=== PATIENT | male | born 1970 | race Two or more races ===

== ENCOUNTER 2021-07-16 12:56 | Inpatient (IN) | payer OTHER ==
[2021-07-16] MEDS ORDERED: IBUPROFEN 400 MG TABLET (FP) PO PRN (14:31)
[2021-07-16] MEDS ORDERED: MAGNESIUM CITRATE 300 ML BOTTLE PO PRN (14:31)
[2021-07-16] MEDS ORDERED: MAGNESIUM HYDROX 2400MG/30ML ORAL SUSPENSION 30 ML CUP PO PRN (14:31)
[2021-07-16] MEDS ORDERED: guaiFENesin 200 MG/10 ML 10 ML UNIT-DOSE CUPS PO PRN (14:31)
[2021-07-16] MEDS ORDERED: P-EPHED 60MG/TRIPROLIDI 2.5MG TABLET PO PRN (14:31)
[2021-07-16] MEDS ORDERED: MAG HYDROX/AL HYDROX/SIMETH 30 ML UNIT-DOSE CUP PO PRN (14:31)
[2021-07-16] MEDS ORDERED: NICOTINE 10 MG CARTRIDGE (INHALER) IH PRN (14:31)
[2021-07-16] MEDS ORDERED: LOPERAMIDE HCL 2 MG CAPSULE PO PRN (14:31)
[2021-07-16 15:00] VITALS: BMI 25.7
[2021-07-16 17:08] LABS: ALBUMIN 4.1 g/dl (3.4-5.0); CALCIUM 9.4 mg/dL (8.5-10.1)
[2021-07-16 17:09] LABS: BLOOD UREA NITROGEN 17.1 mg/dL (7-18)
[2021-07-16 17:11] LABS: CREATININE 1.1 mg/dL (0.55-1.3)
[2021-07-16 17:13] LABS: BILIRUBIN,TOTAL 0.3 mg/dL (0.2-1); TOT PROT 7.1 g/dl (6.4-8.2)
[2021-07-16 17:20] LABS: HEMATOCRIT 36.1 % (35.4-49); HEMOGLOBIN 12.6 GM/dL (11.7-16.9); MCH 31.2 pg (25.7-33.7); MCHC 34.9 g/dl (32.0-35.9); MEAN CELL VOLUME 89.6 fl (80-96); MEAN PLT VOLUME 8.1 fl (7.5-11.1); PLATELET COUNT 321 10^3/uL (134-434); RBC 4.03 M/mm3 (4.00-5.60); RDW 14.5 % (11.9-15.9); WHITE BLOOD COUNT 7.1 K/mm3 (4.0-10.0)
[2021-07-16 17:37] LABS: SYPHILIS W/ RPR CONF NON-REACTIVE (NONREACTIVE)
[2021-07-16] MEDS: hydrOXYzine PAMOATE 25 MG CAPSULE (FP) PO SCH ×2 (19:24→23:39)
[2021-07-16] MEDS ORDERED: TUBERCULIN PPD 5 TU/0.1ML VIAL ID ONE (19:25)
[2021-07-16] MEDS: MELATONIN 5 MG TABLETS PO SCH (23:38)
[2021-07-16] MEDS: CEPHALEXIN MONOHYDRATE 500 MG CAPSULE (UD) PO SCH (23:38)
[2021-07-16] MEDS: THIAMINE HCL 100 MG TABLET (FP) PO SCH (23:39)
[2021-07-17] MEDS: hydrOXYzine PAMOATE 25 MG CAPSULE (FP) PO SCH (07:19)
[2021-07-17] MEDS: PRENATAL VITAMINS W/ FOLIC ACID TABLET (FP) PO SCH (11:32)
[2021-07-17] MEDS: CEPHALEXIN MONOHYDRATE 500 MG CAPSULE (UD) PO SCH (11:33)
[2021-07-17] MEDS: NICOTINE 7 MG/24 HOURS TOPICAL PATCH TD SCH (11:33)
[2021-07-17 12:06] LABS: HIV INTERPRETATION NEGATIVE (NEGATIVE)
[2021-07-17 13:32] LABS: URINE APPEARANCE CLEAR; URINE BILIRUBIN NEGATIVE (NEGATIVE); URINE COLOR YELLOW; URINE GLUCOSE (UA) NEGATIVE (NEGATIVE); URINE KETONE NEGATIVE (NEGATIVE); URINE LEUK ESTERASE NEGATIVE (NEGATIVE); URINE NITRITE NEGATIVE (NEGATIVE); URINE PROTEIN NEGATIVE (NEGATIVE); URINE UROBILINOGEN 0.2 mg/dL (0.2-1.0)
[2021-07-17] MEDS: GABAPENTIN 300 MG CAPSULE PO SCH ×2 (13:59→22:08)
[2021-07-17] MEDS: MELATONIN 5 MG TABLETS PO SCH (22:08)
[2021-07-17] MEDS: THIAMINE HCL 100 MG TABLET (FP) PO SCH (22:09)
[2021-07-18] MEDS: GABAPENTIN 300 MG CAPSULE PO SCH ×3 (06:00→21:23)
[2021-07-18] MEDS: NICOTINE 7 MG/24 HOURS TOPICAL PATCH TD SCH ×2 (10:34)
[2021-07-18] MEDS: PRENATAL VITAMINS W/ FOLIC ACID TABLET (FP) PO SCH (10:34)
[2021-07-18 13:07] LABS: SARS-CoV-2 NAA Not Detected (Not Detected)
[2021-07-18] MEDS: THIAMINE HCL 100 MG TABLET (FP) PO SCH (21:22)
[2021-07-18] MEDS: MELATONIN 5 MG TABLETS PO SCH (21:22)
[2021-07-19] MEDS: GABAPENTIN 300 MG CAPSULE PO SCH ×3 (06:21→21:06)
[2021-07-19] MEDS: NICOTINE 7 MG/24 HOURS TOPICAL PATCH TD SCH (09:44)
[2021-07-19] MEDS: PRENATAL VITAMINS W/ FOLIC ACID TABLET (FP) PO SCH (09:44)
[2021-07-19] MEDS: MELATONIN 5 MG TABLETS PO SCH (21:06)
[2021-07-19] MEDS: THIAMINE HCL 100 MG TABLET (FP) PO SCH (21:06)
[2021-07-20] MEDS: GABAPENTIN 300 MG CAPSULE PO SCH ×3 (06:08→21:20)
[2021-07-20] MEDS: PRENATAL VITAMINS W/ FOLIC ACID TABLET (FP) PO SCH (10:06)
[2021-07-20] MEDS: NICOTINE 7 MG/24 HOURS TOPICAL PATCH TD SCH (10:06)
[2021-07-20] MEDS: THIAMINE HCL 100 MG TABLET (FP) PO SCH (21:20)
[2021-07-20] MEDS: MELATONIN 5 MG TABLETS PO SCH (21:20)
[2021-07-21] MEDS: GABAPENTIN 300 MG CAPSULE PO SCH ×3 (06:03→21:12)
[2021-07-21] MEDS: PRENATAL VITAMINS W/ FOLIC ACID TABLET (FP) PO SCH (09:49)
[2021-07-21] MEDS: NICOTINE 7 MG/24 HOURS TOPICAL PATCH TD SCH (09:49)
[2021-07-21] MEDS: ACETAMINOPHEN 325 MG TABLET (FP) PO PRN ×2 (09:50→16:43)
[2021-07-21] MEDS: LIDOCAINE 5% TOPICAL PATCH TP SCH (12:27)
[2021-07-21] MEDS: THIAMINE HCL 100 MG TABLET (FP) PO SCH (21:12)
[2021-07-21] MEDS: MELATONIN 5 MG TABLETS PO SCH (21:12)
[2021-07-21] MEDS: LIDOCAINE PATCH REMOVAL MC SCH (21:12)
[2021-07-22] MEDS: GABAPENTIN 300 MG CAPSULE PO SCH ×3 (06:26→21:17)
[2021-07-22] MEDS: PRENATAL VITAMINS W/ FOLIC ACID TABLET (FP) PO SCH (10:19)
[2021-07-22] MEDS: LIDOCAINE 5% TOPICAL PATCH TP SCH (10:19)
[2021-07-22] MEDS: NICOTINE 7 MG/24 HOURS TOPICAL PATCH TD SCH (10:20)
[2021-07-22] MEDS: METHOCARBAMOL 500 MG TABLET PO PRN ×2 (10:22→21:17)
[2021-07-22] MEDS: hydrOXYzine PAMOATE 25 MG CAPSULE (FP) PO PRN (15:37)
[2021-07-22] MEDS: MELATONIN 5 MG TABLETS PO SCH (21:17)
[2021-07-22] MEDS: METHYL SALICYLATE/MENTHOL OINT 30 GM TUBE TP SCH (21:17)
[2021-07-22] MEDS: THIAMINE HCL 100 MG TABLET (FP) PO SCH (21:17)
[2021-07-22] MEDS: LIDOCAINE PATCH REMOVAL MC SCH (21:18)
[2021-07-23] MEDS: GABAPENTIN 300 MG CAPSULE PO SCH ×3 (05:57→21:11)
[2021-07-23] MEDS: NICOTINE 7 MG/24 HOURS TOPICAL PATCH TD SCH (11:02)
[2021-07-23] MEDS: LIDOCAINE 5% TOPICAL PATCH TP SCH (11:02)
[2021-07-23] MEDS: hydrOXYzine PAMOATE 25 MG CAPSULE (FP) PO PRN (11:05)
[2021-07-23] MEDS: PRENATAL VITAMINS W/ FOLIC ACID TABLET (FP) PO SCH (11:05)
[2021-07-23] MEDS: METHOCARBAMOL 500 MG TABLET PO PRN (16:41)
[2021-07-23] MEDS: THIAMINE HCL 100 MG TABLET (FP) PO SCH (21:11)
[2021-07-23] MEDS: MELATONIN 5 MG TABLETS PO SCH (21:11)
[2021-07-23] MEDS: METHYL SALICYLATE/MENTHOL OINT 30 GM TUBE TP SCH (21:12)
[2021-07-23] MEDS: LIDOCAINE PATCH REMOVAL MC SCH (21:12)
[2021-07-24] MEDS: GABAPENTIN 300 MG CAPSULE PO SCH ×3 (06:07→21:52)
[2021-07-24] MEDS: LIDOCAINE 5% TOPICAL PATCH TP SCH (10:16)
[2021-07-24] MEDS: PRENATAL VITAMINS W/ FOLIC ACID TABLET (FP) PO SCH (10:17)
[2021-07-24] MEDS: METHOCARBAMOL 500 MG TABLET PO PRN ×3 (10:19→21:54)
[2021-07-24] MEDS: NICOTINE 7 MG/24 HOURS TOPICAL PATCH TD SCH (11:11)
[2021-07-24] MEDS: hydrOXYzine PAMOATE 25 MG CAPSULE (FP) PO PRN (21:52)
[2021-07-24] MEDS: MELATONIN 5 MG TABLETS PO SCH (21:52)
[2021-07-24] MEDS: THIAMINE HCL 100 MG TABLET (FP) PO SCH (21:52)
[2021-07-24] MEDS: LIDOCAINE PATCH REMOVAL MC SCH (21:53)
[2021-07-24] MEDS: METHYL SALICYLATE/MENTHOL OINT 30 GM TUBE TP SCH (21:53)
[2021-07-25] MEDS: GABAPENTIN 300 MG CAPSULE PO SCH ×3 (06:12→21:12)
[2021-07-25] MEDS: LIDOCAINE 5% TOPICAL PATCH TP SCH (10:11)
[2021-07-25] MEDS: NICOTINE 7 MG/24 HOURS TOPICAL PATCH TD SCH (10:11)
[2021-07-25] MEDS: PRENATAL VITAMINS W/ FOLIC ACID TABLET (FP) PO SCH (10:11)
[2021-07-25] MEDS: hydrOXYzine PAMOATE 25 MG CAPSULE (FP) PO PRN (10:12)
[2021-07-25] MEDS: METHOCARBAMOL 500 MG TABLET PO PRN ×2 (13:25→21:13)
[2021-07-25] MEDS: MELATONIN 5 MG TABLETS PO SCH (21:12)
[2021-07-25] MEDS: THIAMINE HCL 100 MG TABLET (FP) PO SCH (21:12)
[2021-07-25] MEDS: METHYL SALICYLATE/MENTHOL OINT 30 GM TUBE TP SCH (21:13)
[2021-07-25] MEDS: LIDOCAINE PATCH REMOVAL MC SCH (21:13)
[2021-07-26] MEDS: GABAPENTIN 300 MG CAPSULE PO SCH ×3 (06:04→21:21)
[2021-07-26] MEDS: LIDOCAINE 5% TOPICAL PATCH TP SCH (09:59)
[2021-07-26] MEDS: NICOTINE 7 MG/24 HOURS TOPICAL PATCH TD SCH (09:59)
[2021-07-26] MEDS: PRENATAL VITAMINS W/ FOLIC ACID TABLET (FP) PO SCH (09:59)
[2021-07-26] MEDS: METHOCARBAMOL 500 MG TABLET PO PRN ×2 (09:59→21:21)
[2021-07-26] MEDS: THIAMINE HCL 100 MG TABLET (FP) PO SCH (21:21)
[2021-07-26] MEDS: hydrOXYzine PAMOATE 25 MG CAPSULE (FP) PO PRN (21:21)
[2021-07-26] MEDS: MELATONIN 5 MG TABLETS PO SCH (21:21)
[2021-07-26] MEDS: METHYL SALICYLATE/MENTHOL OINT 30 GM TUBE TP SCH (21:22)
[2021-07-26] MEDS: LIDOCAINE PATCH REMOVAL MC SCH (21:22)
[2021-07-27] MEDS: GABAPENTIN 300 MG CAPSULE PO SCH (06:02)
[2021-07-27] MEDS: hydrOXYzine PAMOATE 25 MG CAPSULE (FP) PO PRN (06:12)
[2021-07-27] MEDS: METHOCARBAMOL 500 MG TABLET PO PRN ×2 (06:12→09:18)
[2021-07-27 07:12] VITALS: BP 129/84; PULSE 68; TEMP 97.3
[2021-07-27] MEDS: PRENATAL VITAMINS W/ FOLIC ACID TABLET (FP) PO SCH (09:17)
[2021-07-27] MEDS: LIDOCAINE 5% TOPICAL PATCH TP SCH (09:59)
[2021-07-27] MEDS: NICOTINE 7 MG/24 HOURS TOPICAL PATCH TD SCH (10:00)
== END 2021-07-27 09:36 | disposition home or self-care (01) | DRG 772 ==
LOC: YASAS 12:56 → Y3W 18:06
PROVIDERS: ADMIT Allergy & Immunology; ATTEND Allergy & Immunology
PROC: HZ42ZZZ Group Counseling for Substance Abuse Treatment, Cognitive-Behavioral (ICD-10-PCS; principal; 2021-07-16)
DX: F10.20 Alcohol dependence, uncomplicated (principal); F14.20 Cocaine dependence, uncomplicated; F12.20 Cannabis dependence, uncomplicated; F19.280 Other psychoactive substance dependence with psychoactive substance-induced anxiety disorder; F19.282 Other psychoactive substance dependence with psychoactive substance-induced sleep disorder; F31.9 Bipolar disorder, unspecified; F41.9 Anxiety disorder, unspecified; E11.9 Type 2 diabetes mellitus without complications; M54.89 Other dorsalgia; G89.29 Other chronic pain; Z56.0 Unemployment, unspecified; Z59.01 Sheltered homelessness
CPT/HCPCS: 36415; 80053; 81003; 82962; 85027; 86780; 86803; 87389; 93005; 93010; C9803-CS; U0003; U0005

== ENCOUNTER 2022-03-08 16:41 | Inpatient (IN) | payer OTHER ==
[2022-03-08 19:31] VITALS: BMI 23.3
[2022-03-08] MEDS ORDERED: LOPERAMIDE HCL 2 MG CAPSULE PO PRN (19:49)
[2022-03-08] MEDS ORDERED: MAGNESIUM CITRATE 300 ML BOTTLE PO PRN (19:49)
[2022-03-08] MEDS ORDERED: NICOTINE POLACRILEX 2 MG GUM BC PRN (19:49)
[2022-03-08] MEDS ORDERED: guaiFENesin 200 MG/10 ML 10 ML UNIT-DOSE CUPS PO PRN (19:49)
[2022-03-08] MEDS ORDERED: P-EPHED 60MG/TRIPROLIDI 2.5MG TABLET PO PRN (19:49)
[2022-03-08] MEDS ORDERED: NICOTINE 10 MG CARTRIDGE (INHALER) IH PRN (19:49)
[2022-03-08] MEDS ORDERED: MAG HYDROX/AL HYDROX/SIMETH 30 ML UNIT-DOSE CUP PO PRN (19:49)
[2022-03-08] MEDS ORDERED: IBUPROFEN 400 MG TABLET (FP) PO PRN (19:49)
[2022-03-08] MEDS ORDERED: hydrOXYzine PAMOATE 25 MG CAPSULE (FP) PO PRN (19:49)
[2022-03-08] MEDS ORDERED: MAGNESIUM HYDROX 2400MG/30ML ORAL SUSPENSION 30 ML CUP PO PRN (19:49)
[2022-03-08] MEDS: THIAMINE HCL 100 MG TABLET (FP) PO SCH (22:35)
[2022-03-09] MEDS: PRENATAL VITAMINS W/ FOLIC ACID TABLET (FP) PO SCH (10:08)
[2022-03-09] MEDS: GABAPENTIN 100 MG CAPSULE PO SCH (12:31)
[2022-03-09 13:00] LABS: HEMATOCRIT 39.3 % (35.4-49); HEMOGLOBIN 13.2 GM/dL (11.7-16.9); MCH 30.9 pg (25.7-33.7); MCHC 33.5 g/dl (32.0-35.9); MEAN CELL VOLUME 92.5 fl (80-96); MEAN PLT VOLUME 8.4 fl (7.5-11.1); PLATELET COUNT 314 10^3/uL (134-434); RBC 4.25 M/mm3 (4.00-5.60); RDW 14.6 % (11.9-15.9); WHITE BLOOD COUNT 6.5 K/mm3 (4.0-10.0)
[2022-03-09 13:04] LABS: ALBUMIN 3.8 g/dl (3.4-5.0); BLOOD UREA NITROGEN 11.3 mg/dL (7-18)
[2022-03-09 13:07] LABS: CREATININE 0.9 mg/dL (0.55-1.3)
[2022-03-09 13:09] LABS: BILIRUBIN,TOTAL 0.2 mg/dL (0.2-1); TOT PROT 6.6 g/dl (6.4-8.2)
[2022-03-09 16:16] LABS: URINE APPEARANCE CLEAR; URINE BILIRUBIN NEGATIVE (NEGATIVE); URINE COLOR YELLOW; URINE GLUCOSE (UA) NEGATIVE (NEGATIVE); URINE KETONE NEGATIVE (NEGATIVE); URINE LEUK ESTERASE NEGATIVE (NEGATIVE); URINE NITRITE NEGATIVE (NEGATIVE); URINE PROTEIN NEGATIVE (NEGATIVE); URINE UROBILINOGEN 0.2 mg/dL (0.2-1.0)
[2022-03-09] MEDS: GABAPENTIN 300 MG CAPSULE PO SCH (21:58)
[2022-03-09] MEDS: THIAMINE HCL 100 MG TABLET (FP) PO SCH (21:58)
[2022-03-09] MEDS: BENZTROPINE MESYLATE 1 MG TABLET PO SCH (21:58)
[2022-03-09] MEDS: OLANZapine 10 MG TABLET PO SCH (21:58)
[2022-03-10] MEDS: PRENATAL VITAMINS W/ FOLIC ACID TABLET (FP) PO SCH (09:53)
[2022-03-10] MEDS: GABAPENTIN 100 MG CAPSULE PO SCH (09:54)
[2022-03-10] MEDS: BENZTROPINE MESYLATE 1 MG TABLET PO SCH ×2 (09:54→21:06)
[2022-03-10] MEDS: hydrOXYzine PAMOATE 25 MG CAPSULE (FP) PO PRN ×2 (14:12→21:05)
[2022-03-10] MEDS: THIAMINE HCL 100 MG TABLET (FP) PO SCH (21:04)
[2022-03-10] MEDS: MELATONIN 5 MG TABLETS PO PRN (21:04)
[2022-03-10] MEDS: GABAPENTIN 300 MG CAPSULE PO SCH (21:05)
[2022-03-10] MEDS: OLANZapine 10 MG TABLET PO SCH (21:07)
[2022-03-11] MEDS: BENZTROPINE MESYLATE 1 MG TABLET PO SCH ×2 (09:38→21:24)
[2022-03-11] MEDS: GABAPENTIN 300 MG CAPSULE PO SCH ×2 (09:39→21:23)
[2022-03-11] MEDS: PRENATAL VITAMINS W/ FOLIC ACID TABLET (FP) PO SCH (09:39)
[2022-03-11] MEDS: ACETAMINOPHEN 325 MG TABLET (FP) PO PRN (11:04)
[2022-03-11] MEDS: hydrOXYzine PAMOATE 25 MG CAPSULE (FP) PO PRN (14:46)
[2022-03-11] MEDS: MELATONIN 5 MG TABLETS PO PRN (21:22)
[2022-03-11] MEDS: THIAMINE HCL 100 MG TABLET (FP) PO SCH (21:22)
[2022-03-11] MEDS: OLANZapine 10 MG TABLET PO SCH (21:23)
[2022-03-12] MEDS: PRENATAL VITAMINS W/ FOLIC ACID TABLET (FP) PO SCH (10:07)
[2022-03-12] MEDS: BENZTROPINE MESYLATE 1 MG TABLET PO SCH ×2 (10:07→21:19)
[2022-03-12] MEDS: GABAPENTIN 300 MG CAPSULE PO SCH ×2 (10:07→21:20)
[2022-03-12] MEDS: hydrOXYzine PAMOATE 25 MG CAPSULE (FP) PO PRN (16:54)
[2022-03-12] MEDS: MELATONIN 5 MG TABLETS PO PRN (21:19)
[2022-03-12] MEDS: OLANZapine 10 MG TABLET PO SCH (21:20)
[2022-03-12] MEDS: THIAMINE HCL 100 MG TABLET (FP) PO SCH (21:20)
[2022-03-13] MEDS: PRENATAL VITAMINS W/ FOLIC ACID TABLET (FP) PO SCH (10:03)
[2022-03-13] MEDS: GABAPENTIN 300 MG CAPSULE PO SCH ×2 (10:03→21:15)
[2022-03-13] MEDS: BENZTROPINE MESYLATE 1 MG TABLET PO SCH ×2 (10:03→21:16)
[2022-03-13] MEDS: hydrOXYzine PAMOATE 25 MG CAPSULE (FP) PO PRN ×2 (10:04→21:15)
[2022-03-13] MEDS: MELATONIN 5 MG TABLETS PO PRN (21:15)
[2022-03-13] MEDS: THIAMINE HCL 100 MG TABLET (FP) PO SCH (21:15)
[2022-03-13] MEDS: OLANZapine 10 MG TABLET PO SCH (21:16)
[2022-03-14] MEDS: hydrOXYzine PAMOATE 25 MG CAPSULE (FP) PO PRN ×2 (07:36→13:43)
[2022-03-14] MEDS: GABAPENTIN 300 MG CAPSULE PO SCH ×2 (10:10→21:15)
[2022-03-14] MEDS: PRENATAL VITAMINS W/ FOLIC ACID TABLET (FP) PO SCH (10:10)
[2022-03-14] MEDS: BENZTROPINE MESYLATE 1 MG TABLET PO SCH ×2 (10:10→21:15)
[2022-03-14] MEDS: THIAMINE HCL 100 MG TABLET (FP) PO SCH (21:14)
[2022-03-14] MEDS: OLANZapine 10 MG TABLET PO SCH (21:15)
[2022-03-14] MEDS: MELATONIN 5 MG TABLETS PO PRN (21:15)
[2022-03-15] MEDS: hydrOXYzine PAMOATE 25 MG CAPSULE (FP) PO PRN ×2 (06:25→21:26)
[2022-03-15] MEDS: BENZTROPINE MESYLATE 1 MG TABLET PO SCH ×2 (09:45→21:26)
[2022-03-15] MEDS: PRENATAL VITAMINS W/ FOLIC ACID TABLET (FP) PO SCH (09:45)
[2022-03-15] MEDS: GABAPENTIN 300 MG CAPSULE PO SCH ×2 (09:45→21:25)
[2022-03-15] MEDS: ACETAMINOPHEN 325 MG TABLET (FP) PO PRN (13:05)
[2022-03-15] MEDS: OLANZapine 10 MG TABLET PO SCH (21:25)
[2022-03-15] MEDS: THIAMINE HCL 100 MG TABLET (FP) PO SCH (21:25)
[2022-03-15] MEDS: MELATONIN 5 MG TABLETS PO PRN (21:25)
[2022-03-16] MEDS: PRENATAL VITAMINS W/ FOLIC ACID TABLET (FP) PO SCH (10:10)
[2022-03-16] MEDS: BENZTROPINE MESYLATE 1 MG TABLET PO SCH ×2 (10:10→21:13)
[2022-03-16] MEDS: GABAPENTIN 300 MG CAPSULE PO SCH ×2 (10:10→21:12)
[2022-03-16] MEDS: hydrOXYzine PAMOATE 25 MG CAPSULE (FP) PO PRN ×2 (15:02→21:12)
[2022-03-16] MEDS: OLANZapine 10 MG TABLET PO SCH (21:12)
[2022-03-16] MEDS: THIAMINE HCL 100 MG TABLET (FP) PO SCH (21:12)
[2022-03-16] MEDS: MELATONIN 5 MG TABLETS PO PRN (21:12)
[2022-03-17] MEDS: BENZTROPINE MESYLATE 1 MG TABLET PO SCH ×2 (09:04→21:17)
[2022-03-17] MEDS: GABAPENTIN 300 MG CAPSULE PO SCH ×2 (09:05→21:16)
[2022-03-17] MEDS: PRENATAL VITAMINS W/ FOLIC ACID TABLET (FP) PO SCH (09:05)
[2022-03-17] MEDS: hydrOXYzine PAMOATE 25 MG CAPSULE (FP) PO PRN (21:16)
[2022-03-17] MEDS: MELATONIN 5 MG TABLETS PO PRN (21:16)
[2022-03-17] MEDS: THIAMINE HCL 100 MG TABLET (FP) PO SCH (21:16)
[2022-03-17] MEDS: OLANZapine 10 MG TABLET PO SCH (21:16)
[2022-03-18] MEDS: BENZTROPINE MESYLATE 1 MG TABLET PO SCH ×2 (09:43→21:21)
[2022-03-18] MEDS: PRENATAL VITAMINS W/ FOLIC ACID TABLET (FP) PO SCH (09:44)
[2022-03-18] MEDS: GABAPENTIN 300 MG CAPSULE PO SCH (09:44)
[2022-03-18] MEDS: MELATONIN 5 MG TABLETS PO PRN (21:19)
[2022-03-18] MEDS: THIAMINE HCL 100 MG TABLET (FP) PO SCH (21:19)
[2022-03-18] MEDS: GABAPENTIN 400 MG CAPSULE PO SCH (21:21)
[2022-03-18] MEDS: OLANZapine 10 MG TABLET PO SCH (21:21)
[2022-03-19] MEDS: GABAPENTIN 400 MG CAPSULE PO SCH ×2 (10:04→21:16)
[2022-03-19] MEDS: BENZTROPINE MESYLATE 1 MG TABLET PO SCH ×2 (10:04→21:18)
[2022-03-19] MEDS: PRENATAL VITAMINS W/ FOLIC ACID TABLET (FP) PO SCH (10:04)
[2022-03-19] MEDS ORDERED: cloNIDine HCL 0.1 MG TABLET PO ONE (15:23)
[2022-03-19] MEDS: OLANZapine 10 MG TABLET PO SCH (21:16)
[2022-03-19] MEDS: THIAMINE HCL 100 MG TABLET (FP) PO SCH (21:16)
[2022-03-19] MEDS: hydrOXYzine PAMOATE 25 MG CAPSULE (FP) PO PRN (21:17)
[2022-03-19] MEDS: MELATONIN 5 MG TABLETS PO PRN (21:17)
[2022-03-20] MEDS: BENZTROPINE MESYLATE 1 MG TABLET PO SCH ×2 (10:14→21:17)
[2022-03-20] MEDS: GABAPENTIN 400 MG CAPSULE PO SCH ×2 (10:15→21:16)
[2022-03-20] MEDS: PRENATAL VITAMINS W/ FOLIC ACID TABLET (FP) PO SCH (10:15)
[2022-03-20] MEDS: hydrOXYzine PAMOATE 25 MG CAPSULE (FP) PO PRN (14:57)
[2022-03-20] MEDS: MELATONIN 5 MG TABLETS PO PRN (21:16)
[2022-03-20] MEDS: OLANZapine 10 MG TABLET PO SCH (21:16)
[2022-03-20] MEDS: THIAMINE HCL 100 MG TABLET (FP) PO SCH (21:16)
[2022-03-21] MEDS: BENZTROPINE MESYLATE 1 MG TABLET PO SCH ×2 (09:13→21:10)
[2022-03-21] MEDS: PRENATAL VITAMINS W/ FOLIC ACID TABLET (FP) PO SCH (09:13)
[2022-03-21] MEDS: GABAPENTIN 400 MG CAPSULE PO SCH ×2 (09:13→21:10)
[2022-03-21] MEDS: hydrOXYzine PAMOATE 25 MG CAPSULE (FP) PO PRN ×2 (15:32→21:09)
[2022-03-21] MEDS: THIAMINE HCL 100 MG TABLET (FP) PO SCH (21:09)
[2022-03-21] MEDS: MELATONIN 5 MG TABLETS PO PRN (21:09)
[2022-03-21] MEDS: OLANZapine 10 MG TABLET PO SCH (21:10)
[2022-03-22 06:45] VITALS: BP 133/72; PULSE 95; RESP 20; TEMP 97.7
[2022-03-22] MEDS: GABAPENTIN 400 MG CAPSULE PO SCH (09:02)
[2022-03-22] MEDS: PRENATAL VITAMINS W/ FOLIC ACID TABLET (FP) PO SCH (09:03)
== END 2022-03-22 09:08 | disposition home or self-care (01) | DRG 772 ==
LOC: YASAS 16:41 → Y3E 21:45
PROVIDERS: ADMIT Allergy & Immunology; ATTEND Surgery
PROC: HZ42ZZZ Group Counseling for Substance Abuse Treatment, Cognitive-Behavioral (ICD-10-PCS; principal; 2022-03-08)
DX: F10.20 Alcohol dependence, uncomplicated (principal); F14.20 Cocaine dependence, uncomplicated; F12.20 Cannabis dependence, uncomplicated; F17.210 Nicotine dependence, cigarettes, uncomplicated; F20.9 Schizophrenia, unspecified; F19.282 Other psychoactive substance dependence with psychoactive substance-induced sleep disorder; F19.280 Other psychoactive substance dependence with psychoactive substance-induced anxiety disorder; F19.24 Other psychoactive substance dependence with psychoactive substance-induced mood disorder; Z86.39 Personal history of other endocrine, nutritional and metabolic disease
CPT/HCPCS: 36415; 80053; 81003; 82962; 85027; 86780; 87086; C9803-CS; U0003; U0005

== ENCOUNTER 2022-08-10 13:47 | Inpatient (IN) | payer OTHER ==
[2022-08-10 14:55] VITALS: BMI 24.3
[2022-08-10] MEDS ORDERED: MAG HYDROX/AL HYDROX/SIMETH 30 ML UNIT-DOSE CUP PO PRN (15:01)
[2022-08-10] MEDS ORDERED: NICOTINE 10 MG CARTRIDGE (INHALER) IH PRN (15:01)
[2022-08-10] MEDS ORDERED: LOPERAMIDE HCL 2 MG CAPSULE PO PRN (15:01)
[2022-08-10] MEDS ORDERED: BENZONATATE 200 MG CAPSULE PO PRN (15:01)
[2022-08-10] MEDS ORDERED: NICOTINE POLACRILEX 2 MG GUM BC PRN (15:01)
[2022-08-10] MEDS ORDERED: MAGNESIUM HYDROX 2400MG/30ML ORAL SUSPENSION 30 ML CUP PO PRN (15:01)
[2022-08-10] MEDS ORDERED: POLYETHYLENE GLYCOL (HEALTHYLAX) 3350 17 GM PACKET PO PRN (15:01)
[2022-08-10] MEDS ORDERED: IBUPROFEN 600 MG TABLET (FP) PO PRN (15:01)
[2022-08-10] MEDS ORDERED: ACETAMINOPHEN 325 MG TABLET (FP) PO PRN (15:01)
[2022-08-10] MEDS ORDERED: IBUPROFEN 400 MG TABLET (FP) PO PRN (15:01)
[2022-08-10] MEDS ORDERED: BENZOCAINE/MENTHOL (CHLORASEPTIC ) LOZENGE MM PRN (15:01)
[2022-08-10] MEDS ORDERED: guaiFENesin 600 MG TABLET.ER (FP) PO PRN (15:01)
[2022-08-10] MEDS ORDERED: NICOTINE 14 MG/24 HOURS TOPICAL PATCH TD PRN (15:01)
[2022-08-10] MEDS: MELATONIN 5 MG TABLETS PO SCH (21:49)
[2022-08-10] MEDS: THIAMINE HCL 100 MG TABLET (FP) PO SCH (21:49)
[2022-08-11 07:04] VITALS: RESP 18
[2022-08-11] MEDS: PRENATAL VITAMINS W/ FOLIC ACID TABLET (FP) PO SCH (09:36)
[2022-08-11 11:11] LABS: URINE APPEARANCE CLEAR; URINE BILIRUBIN NEGATIVE (NEGATIVE); URINE COLOR YELLOW; URINE GLUCOSE (UA) NEGATIVE (NEGATIVE); URINE KETONE NEGATIVE (NEGATIVE); URINE LEUK ESTERASE NEGATIVE (NEGATIVE); URINE NITRITE NEGATIVE (NEGATIVE); URINE PROTEIN NEGATIVE (NEGATIVE); URINE UROBILINOGEN 0.2 mg/dL (0.2-1.0)
[2022-08-11 11:15] LABS: HEMATOCRIT 38.7 % (35.4-49); MCH 29.5 pg (25.7-33.7); MCHC 33.6 g/dl (32.0-35.9); MEAN CELL VOLUME 87.8 fl (80-96); MEAN PLT VOLUME 8.2 fl (7.5-11.1); PLATELET COUNT 381 10^3/uL (134-434); RBC 4.41 M/mm3 (4.00-5.60); RDW 15.3 % (11.9-15.9); WHITE BLOOD COUNT 6.6 K/mm3 (4.0-10.0)
[2022-08-11 11:22] LABS: ALBUMIN 3.6 g/dl (3.4-5.0)
[2022-08-11 11:23] LABS: BLOOD UREA NITROGEN 12.8 mg/dL (7-18)
[2022-08-11 11:26] LABS: CREATININE 0.8 mg/dL (0.55-1.3)
[2022-08-11 11:28] LABS: BILIRUBIN,TOTAL 0.2 mg/dL (0.2-1); TOT PROT 6.6 g/dl (6.4-8.2)
[2022-08-11 11:54] LABS: SYPHILIS W/ RPR CONF NON-REACTIVE (NONREACTIVE)
[2022-08-11] MEDS: hydrOXYzine PAMOATE 25 MG CAPSULE (FP) PO PRN (16:20)
[2022-08-11] MEDS: MELATONIN 5 MG TABLETS PO SCH (21:20)
[2022-08-11] MEDS: THIAMINE HCL 100 MG TABLET (FP) PO SCH (21:20)
[2022-08-11] MEDS: OLANZapine 5 MG TABLET PO SCH (21:22)
[2022-08-12] MEDS: OLANZapine 5 MG TABLET PO SCH ×2 (09:51→21:02)
[2022-08-12] MEDS: PRENATAL VITAMINS W/ FOLIC ACID TABLET (FP) PO SCH (09:51)
[2022-08-12] MEDS: hydrOXYzine PAMOATE 25 MG CAPSULE (FP) PO PRN (17:48)
[2022-08-12] MEDS: MELATONIN 5 MG TABLETS PO SCH (21:02)
[2022-08-12] MEDS: THIAMINE HCL 100 MG TABLET (FP) PO SCH (21:02)
[2022-08-13] MEDS: OLANZapine 5 MG TABLET PO SCH ×2 (09:50→21:27)
[2022-08-13] MEDS: PRENATAL VITAMINS W/ FOLIC ACID TABLET (FP) PO SCH (09:50)
[2022-08-13] MEDS: hydrOXYzine PAMOATE 25 MG CAPSULE (FP) PO PRN (18:52)
[2022-08-13] MEDS: THIAMINE HCL 100 MG TABLET (FP) PO SCH (21:27)
[2022-08-13] MEDS: MELATONIN 5 MG TABLETS PO SCH (21:27)
[2022-08-14 07:29] VITALS: BP 122/89; PULSE 95; TEMP 96.9
[2022-08-14] MEDS: PRENATAL VITAMINS W/ FOLIC ACID TABLET (FP) PO SCH (10:25)
[2022-08-14] MEDS: OLANZapine 5 MG TABLET PO SCH (10:25)
[2022-08-14] MEDS: hydrOXYzine PAMOATE 25 MG CAPSULE (FP) PO PRN (10:26)
== END 2022-08-14 12:46 | disposition home or self-care (01) | DRG 772 ==
LOC: YASAS 13:47 → Y3W 18:41
PROVIDERS: ADMIT Allergy & Immunology; ATTEND Psychiatry & Neurology Pain Medicine
PROC: HZ42ZZZ Group Counseling for Substance Abuse Treatment, Cognitive-Behavioral (ICD-10-PCS; principal; 2022-08-10)
DX: F14.20 Cocaine dependence, uncomplicated (principal); F12.20 Cannabis dependence, uncomplicated; F17.210 Nicotine dependence, cigarettes, uncomplicated; F25.1 Schizoaffective disorder, depressive type; E11.9 Type 2 diabetes mellitus without complications; M54.50 Low back pain, unspecified; Z28.310 Unvaccinated for COVID-19; Z28.9 Immunization not carried out for unspecified reason; Z56.0 Unemployment, unspecified; Z59.02 Unsheltered homelessness
CPT/HCPCS: 36415; 80053; 81003; 83036; 85027; 86780; 86803; 87811; C9803-CS; U0003; U0005

== ENCOUNTER 2022-10-07 19:41 | Inpatient (IN) | payer OTHER ==
[2022-10-07 20:05] VITALS: BMI 22.9
[2022-10-07] MEDS ORDERED: NALOXONE HCL 0.4 MG/ML VIAL IM PRN (22:37)
[2022-10-07] MEDS ORDERED: ACETAMINOPHEN 325 MG TABLET (FP) PO PRN (22:37)
[2022-10-07] MEDS ORDERED: BENZOCAINE/MENTHOL (CHLORASEPTIC ) LOZENGE MM PRN (22:37)
[2022-10-07] MEDS ORDERED: MAGNESIUM HYDROX 2400MG/30ML ORAL SUSPENSION 30 ML CUP PO PRN (22:37)
[2022-10-07] MEDS ORDERED: NALOXONE HCL (KLOXXADO) 8 MG SPRAY NS PRN (22:37)
[2022-10-07] MEDS ORDERED: NICOTINE POLACRILEX 2 MG GUM BUC PRN (22:37)
[2022-10-07] MEDS ORDERED: IBUPROFEN 600 MG TABLET (FP) PO PRN (22:37)
[2022-10-07] MEDS ORDERED: BENZONATATE 200 MG CAPSULE PO PRN (22:37)
[2022-10-07] MEDS ORDERED: IBUPROFEN 400 MG TABLET (FP) PO PRN (22:37)
[2022-10-07] MEDS ORDERED: COLLOIDAL OATMEAL 1 BAR EACH TP PRN (22:37)
[2022-10-07] MEDS ORDERED: guaiFENesin 600 MG TABLET.ER (FP) PO PRN (22:37)
[2022-10-07] MEDS ORDERED: AMMONIUM LACTATE 12% LOTION 225 GM BOTTLE TP PRN (22:37)
[2022-10-07] MEDS ORDERED: MAG HYDROX/AL HYDROX/SIMETH 30 ML UNIT-DOSE CUP PO PRN (22:37)
[2022-10-07] MEDS ORDERED: POLYETHYLENE GLYCOL (HEALTHYLAX) 3350 17 GM PACKET PO PRN (22:37)
[2022-10-07] MEDS ORDERED: LOPERAMIDE HCL 2 MG CAPSULE PO PRN (22:37)
[2022-10-08] MEDS: MELATONIN 5 MG TABLETS PO SCH ×2 (05:59→21:21)
[2022-10-08] MEDS ORDERED: TUBERCULIN PPD 5 TU/0.1ML VIAL ID ONE (06:42)
[2022-10-08] MEDS: PRENATAL VITAMINS W/ FOLIC ACID TABLET (FP) PO SCH (10:21)
[2022-10-08] MEDS: NICOTINE 21 MG/24 HOURS TOPICAL PATCH TD SCH (10:21)
[2022-10-08] MEDS: OLANZapine 2.5 MG TABLET PO SCH ×2 (10:21→21:22)
[2022-10-08] MEDS ORDERED: CEPHALEXIN MONOHYDRATE 500 MG CAPSULE (UD) PO SCH (11:30)
[2022-10-08] MEDS: PATIENT,S OWN MED:CEPHALEXIN MONOHYDRATE 500 MG CAPSULE (UD) PO SCH ×3 (12:13→23:21)
[2022-10-08] MEDS: hydrOXYzine PAMOATE 25 MG CAPSULE (FP) PO PRN (18:33)
[2022-10-08] MEDS: THIAMINE HCL 100 MG TABLET (FP) PO SCH (21:21)
[2022-10-09] MEDS: PATIENT,S OWN MED:CEPHALEXIN MONOHYDRATE 500 MG CAPSULE (UD) PO SCH ×3 (06:04→17:44)
[2022-10-09 07:03] VITALS: RESP 18
[2022-10-09] MEDS: PRENATAL VITAMINS W/ FOLIC ACID TABLET (FP) PO SCH (09:56)
[2022-10-09] MEDS: OLANZapine 2.5 MG TABLET PO SCH ×2 (09:57→21:19)
[2022-10-09] MEDS: hydrOXYzine PAMOATE 25 MG CAPSULE (FP) PO PRN (09:58)
[2022-10-09] MEDS: NICOTINE 21 MG/24 HOURS TOPICAL PATCH TD SCH (09:59)
[2022-10-09] MEDS: MELATONIN 5 MG TABLETS PO SCH (21:18)
[2022-10-09] MEDS: THIAMINE HCL 100 MG TABLET (FP) PO SCH (21:18)
[2022-10-10] MEDS: PATIENT,S OWN MED:CEPHALEXIN MONOHYDRATE 500 MG CAPSULE (UD) PO SCH ×5 (00:12→23:27)
[2022-10-10] MEDS: OLANZapine 2.5 MG TABLET PO SCH ×2 (09:15→21:42)
[2022-10-10] MEDS: NICOTINE 21 MG/24 HOURS TOPICAL PATCH TD SCH (09:15)
[2022-10-10] MEDS: PRENATAL VITAMINS W/ FOLIC ACID TABLET (FP) PO SCH (09:15)
[2022-10-10] MEDS: hydrOXYzine PAMOATE 25 MG CAPSULE (FP) PO PRN ×2 (09:16→21:29)
[2022-10-10] MEDS: THIAMINE HCL 100 MG TABLET (FP) PO SCH (21:28)
[2022-10-10] MEDS: MELATONIN 5 MG TABLETS PO SCH (21:29)
[2022-10-11] MEDS: PATIENT,S OWN MED:CEPHALEXIN MONOHYDRATE 500 MG CAPSULE (UD) PO SCH ×2 (06:30→12:02)
[2022-10-11] MEDS: hydrOXYzine PAMOATE 25 MG CAPSULE (FP) PO PRN (06:30)
[2022-10-11] MEDS: PRENATAL VITAMINS W/ FOLIC ACID TABLET (FP) PO SCH (10:01)
[2022-10-11] MEDS: NICOTINE 21 MG/24 HOURS TOPICAL PATCH TD SCH (10:02)
[2022-10-11] MEDS: OLANZapine 2.5 MG TABLET PO SCH (10:02)
[2022-10-11 11:20] VITALS: BP 138/88; PULSE 96; TEMP 97
== END 2022-10-11 12:07 | disposition short-term general hospital (02) | DRG 772 ==
LOC: YASAS 19:41 → Y3W 10-08 02:28
PROVIDERS: ADMIT Allergy & Immunology; ATTEND Allergy & Immunology
PROC: HZ42ZZZ Group Counseling for Substance Abuse Treatment, Cognitive-Behavioral (ICD-10-PCS; principal; 2022-10-08)
DX: F14.20 Cocaine dependence, uncomplicated (principal); F10.20 Alcohol dependence, uncomplicated; F12.20 Cannabis dependence, uncomplicated; F17.210 Nicotine dependence, cigarettes, uncomplicated; F25.9 Schizoaffective disorder, unspecified; F19.24 Other psychoactive substance dependence with psychoactive substance-induced mood disorder; H11.31 Conjunctival hemorrhage, right eye; S09.93XD Unspecified injury of face, subsequent encounter; Y00.XXXD Assault by blunt object, subsequent encounter; Z28.310 Unvaccinated for COVID-19; Z28.9 Immunization not carried out for unspecified reason
CPT/HCPCS: 87635

== ENCOUNTER 2022-10-11 12:04 | Emergency (ER) | payer OTHER ==
[2022-10-11 12:25] VITALS: BP 121/88; PULSE 86; RESP 18; TEMP 97.6; BMI 23.3
== END 2022-10-11 15:44 | disposition left against medical advice (07) ==
LOC: JER 12:04
DX: H02.843 Edema of right eye, unspecified eyelid (principal); H53.9 Unspecified visual disturbance; F14.20 Cocaine dependence, uncomplicated; S09.93XD Unspecified injury of face, subsequent encounter; W22.8XXD Striking against or struck by other objects, subsequent encounter
CPT/HCPCS: 99282-25

== ENCOUNTER 2023-02-10 17:36 | Inpatient (IN) | payer OTHER ==
[2023-02-10 18:37] VITALS: BMI 22.6
[2023-02-10] MEDS ORDERED: NICOTINE POLACRILEX 2 MG GUM BUC PRN (22:46)
[2023-02-10] MEDS ORDERED: IBUPROFEN 600 MG TABLET (FP) PO PRN (22:46)
[2023-02-10] MEDS ORDERED: COLLOIDAL OATMEAL 1 BAR EACH TP PRN (22:46)
[2023-02-10] MEDS ORDERED: BENZONATATE 200 MG CAPSULE PO PRN (22:46)
[2023-02-10] MEDS ORDERED: IBUPROFEN 400 MG TABLET (FP) PO PRN (22:46)
[2023-02-10] MEDS ORDERED: MAG HYDROX/AL HYDROX/SIMETH 30 ML UNIT-DOSE CUP PO PRN (22:46)
[2023-02-10] MEDS ORDERED: hydrOXYzine PAMOATE 25 MG CAPSULE (FP) PO PRN (22:46)
[2023-02-10] MEDS ORDERED: BENZOCAINE/MENTHOL (CHLORASEPTIC ) LOZENGE MM PRN (22:46)
[2023-02-10] MEDS ORDERED: ACETAMINOPHEN 325 MG TABLET (FP) PO PRN (22:46)
[2023-02-10] MEDS ORDERED: POLYETHYLENE GLYCOL (HEALTHYLAX) 3350 17 GM PACKET PO PRN (22:46)
[2023-02-10] MEDS ORDERED: MAGNESIUM HYDROX 2400MG/30ML ORAL SUSPENSION 30 ML CUP PO PRN (22:46)
[2023-02-10] MEDS ORDERED: guaiFENesin 600 MG TABLET.ER (FP) PO PRN (22:46)
[2023-02-10] MEDS ORDERED: LOPERAMIDE HCL 2 MG CAPSULE PO PRN (22:46)
[2023-02-10] MEDS: MELATONIN 5 MG TABLETS PO SCH (23:12)
[2023-02-11] MEDS: PRENATAL VITAMINS W/ FOLIC ACID TABLET (FP) PO SCH (09:59)
[2023-02-11 10:57] LABS: HEMATOCRIT 39.1 % (35.4-49); HEMOGLOBIN 12.7 GM/dL (11.7-16.9); MCH 29.6 pg (25.7-33.7); MCHC 32.4 g/dl (32.0-35.9); MEAN CELL VOLUME 91.4 fl (80-96); PLATELET COUNT 368 10^3/uL (134-434); RBC 4.28 M/mm3 (4.00-5.60); RDW 15.3 % (11.9-15.9); WHITE BLOOD COUNT 4.3 K/mm3 (4.0-10.0)
[2023-02-11 11:19] LABS: ALBUMIN 3.6 g/dl (3.4-5.0); BLOOD UREA NITROGEN 13.3 mg/dL (7-18); CALCIUM 8.5 mg/dL (8.5-10.1)
[2023-02-11 11:22] LABS: CREATININE 0.7 mg/dL (0.55-1.3)
[2023-02-11 11:24] LABS: BILIRUBIN,TOTAL 0.2 mg/dL (0.2-1); TOT PROT 6.6 g/dl (6.4-8.2)
[2023-02-11 11:46] LABS: SYPHILIS W/ RPR CONF NON-REACTIVE (NONREACTIVE)
[2023-02-11] MEDS: THIAMINE HCL 100 MG TABLET (FP) PO SCH (21:11)
[2023-02-11] MEDS: MELATONIN 5 MG TABLETS PO SCH (21:12)
[2023-02-12] MEDS: PRENATAL VITAMINS W/ FOLIC ACID TABLET (FP) PO SCH (09:51)
[2023-02-12] MEDS: THIAMINE HCL 100 MG TABLET (FP) PO SCH ×2 (22:01→22:42)
[2023-02-12] MEDS: MELATONIN 5 MG TABLETS PO SCH ×2 (22:01→22:42)
[2023-02-13] MEDS: PRENATAL VITAMINS W/ FOLIC ACID TABLET (FP) PO SCH (10:08)
[2023-02-13] MEDS: THIAMINE HCL 100 MG TABLET (FP) PO SCH (21:20)
[2023-02-13] MEDS: MELATONIN 5 MG TABLETS PO SCH (21:20)
[2023-02-14 06:54] VITALS: BP 109/69; PULSE 102; RESP 17; TEMP 97.1
== END 2023-02-14 09:01 | disposition left against medical advice (07) | DRG 770 ==
LOC: YASAS 17:36 → Y3W 22:23
PROVIDERS: ADMIT Allergy & Immunology; ATTEND Psychiatry & Neurology Pain Medicine
PROC: HZ42ZZZ Group Counseling for Substance Abuse Treatment, Cognitive-Behavioral (ICD-10-PCS; principal; 2023-02-10)
DX: F14.20 Cocaine dependence, uncomplicated (principal); F12.20 Cannabis dependence, uncomplicated; F17.210 Nicotine dependence, cigarettes, uncomplicated; F25.1 Schizoaffective disorder, depressive type; F19.24 Other psychoactive substance dependence with psychoactive substance-induced mood disorder; F41.9 Anxiety disorder, unspecified; Z28.310 Unvaccinated for COVID-19; Z28.9 Immunization not carried out for unspecified reason; Z59.00 Homelessness unspecified
CPT/HCPCS: 36415; 80053; 85027; 86780; 86803; 87635

== ENCOUNTER 2023-02-24 18:30 | Inpatient (IN) | payer OTHER ==
[2023-02-24 18:43] VITALS: BMI 22.4
[2023-02-24] MEDS ORDERED: MAG HYDROX/AL HYDROX/SIMETH 30 ML UNIT-DOSE CUP PO PRN (21:14)
[2023-02-24] MEDS ORDERED: METHOCARBAMOL 500 MG TABLET PO PRN (21:14)
[2023-02-24] MEDS ORDERED: LOPERAMIDE HCL 2 MG CAPSULE PO PRN (21:14)
[2023-02-24] MEDS ORDERED: ACETAMINOPHEN 325 MG TABLET (FP) PO PRN (21:14)
[2023-02-24] MEDS ORDERED: BENZOCAINE/MENTHOL (CHLORASEPTIC ) LOZENGE MM PRN (21:14)
[2023-02-24] MEDS ORDERED: IBUPROFEN 400 MG TABLET (FP) PO PRN (21:14)
[2023-02-24] MEDS ORDERED: COLLOIDAL OATMEAL 1 BAR EACH TP PRN (21:14)
[2023-02-24] MEDS ORDERED: guaiFENesin 600 MG TABLET.ER (FP) PO PRN (21:14)
[2023-02-24] MEDS ORDERED: MAGNESIUM HYDROX 2400MG/30ML ORAL SUSPENSION 30 ML CUP PO PRN (21:14)
[2023-02-24] MEDS ORDERED: NICOTINE POLACRILEX 2 MG GUM BUC PRN (21:14)
[2023-02-24] MEDS ORDERED: BENZONATATE 200 MG CAPSULE PO PRN (21:14)
[2023-02-24] MEDS ORDERED: POLYETHYLENE GLYCOL (HEALTHYLAX) 3350 17 GM PACKET PO PRN (21:14)
[2023-02-24] MEDS ORDERED: IBUPROFEN 600 MG TABLET (FP) PO ONE (22:22)
[2023-02-24] MEDS ORDERED: MELATONIN 5 MG TABLETS ONE (22:22)
[2023-02-24] MEDS: IBUPROFEN 600 MG TABLET (FP) PO PRN (22:23)
[2023-02-24] MEDS: THIAMINE HCL 100 MG TABLET (FP) PO SCH (22:23)
[2023-02-24] MEDS: MELATONIN 5 MG TABLETS PO SCH (22:23)
[2023-02-25] MEDS: hydrOXYzine PAMOATE 25 MG CAPSULE (FP) PO PRN ×2 (06:14→11:25)
[2023-02-25] MEDS ORDERED: SULFAMETHOXAZOLE/TRIMETHOPRIM 800MG/160MG D.S. TABLET PO SCH (10:00)
[2023-02-25] MEDS: SULFAMETHOXAZOLE PO SCH ×2 (11:25→21:05)
[2023-02-25] MEDS: TRIMETHOPRIM PO SCH ×2 (11:25→21:05)
[2023-02-25] MEDS: [UNRECOGNIZED DRUG - OTHER] PO SCH ×2 (11:25→21:05)
[2023-02-25] MEDS: PRENATAL VITAMINS W/ FOLIC ACID TABLET (FP) PO SCH (11:25)
[2023-02-25 13:12] LABS: HIV INTERPRETATION NEGATIVE (NEGATIVE)
[2023-02-25] MEDS: IBUPROFEN 600 MG TABLET (FP) PO PRN (13:15)
[2023-02-25] MEDS: THIAMINE HCL 100 MG TABLET (FP) PO SCH (21:05)
[2023-02-25] MEDS: MELATONIN 5 MG TABLETS PO SCH (21:05)
[2023-02-26 06:54] VITALS: RESP 18
[2023-02-26] MEDS: SULFAMETHOXAZOLE PO SCH ×2 (09:51→21:02)
[2023-02-26] MEDS: TRIMETHOPRIM PO SCH ×2 (09:51→21:02)
[2023-02-26] MEDS: PRENATAL VITAMINS W/ FOLIC ACID TABLET (FP) PO SCH (09:51)
[2023-02-26] MEDS: [UNRECOGNIZED DRUG - OTHER] PO SCH ×2 (09:51→21:02)
[2023-02-26] MEDS: MELATONIN 5 MG TABLETS PO SCH (21:02)
[2023-02-26] MEDS: THIAMINE HCL 100 MG TABLET (FP) PO SCH (21:03)
[2023-02-27 06:59] VITALS: BP 145/90; PULSE 93; TEMP 97.7
[2023-02-27] MEDS: PRENATAL VITAMINS W/ FOLIC ACID TABLET (FP) PO SCH (10:22)
== END 2023-02-27 10:34 | disposition left against medical advice (07) | DRG 772 ==
LOC: YASAS 18:30 → Y3W 21:39
PROVIDERS: ADMIT Psychiatry & Neurology Pain Medicine; ATTEND Psychiatry & Neurology Pain Medicine
PROC: HZ42ZZZ Group Counseling for Substance Abuse Treatment, Cognitive-Behavioral (ICD-10-PCS; principal; 2023-02-24)
DX: F14.20 Cocaine dependence, uncomplicated (principal); F10.20 Alcohol dependence, uncomplicated; F17.210 Nicotine dependence, cigarettes, uncomplicated; F25.9 Schizoaffective disorder, unspecified; F91.8 Other conduct disorders; Z91.199 Patient's noncompliance with other medical treatment and regimen due to unspecified reason; Z28.310 Unvaccinated for COVID-19; Z28.9 Immunization not carried out for unspecified reason; Z59.00 Homelessness unspecified
CPT/HCPCS: 36415; 87389; 87635; 87811

== ENCOUNTER 2023-11-15 20:16 | Inpatient (IN) | payer OTHER ==
[2023-11-15 21:11] VITALS: BMI 21.4
[2023-11-15] MEDS ORDERED: NICOTINE POLACRILEX 2 MG GUM BUC PRN (22:55)
[2023-11-15] MEDS ORDERED: ACETAMINOPHEN 325 MG TABLET (FP) PO PRN (22:55)
[2023-11-15] MEDS ORDERED: NALOXONE HCL 0.4 MG/ML VIAL IM PRN (22:55)
[2023-11-15] MEDS ORDERED: guaiFENesin 600 MG TABLET.ER (FP) PO PRN (22:55)
[2023-11-15] MEDS ORDERED: MAG HYDROX/AL HYDROX/SIMETH 30 ML UNIT-DOSE CUP PO PRN (22:55)
[2023-11-15] MEDS ORDERED: LOPERAMIDE HCL 2 MG CAPSULE PO PRN (22:55)
[2023-11-15] MEDS ORDERED: DICYCLOMINE HCL 10 MG CAPSULE PO PRN (22:55)
[2023-11-15] MEDS ORDERED: ONDANSETRON *ODT* 4 MG TABLET SL PRN (22:55)
[2023-11-15] MEDS ORDERED: P-EPHED 60MG/TRIPROLIDI 2.5MG TABLET PO PRN (22:55)
[2023-11-15] MEDS ORDERED: MAGNESIUM HYDROX 2400MG/30ML ORAL SUSPENSION 30 ML CUP PO PRN (22:55)
[2023-11-15] MEDS ORDERED: IBUPROFEN 400 MG TABLET (FP) PO PRN (22:55)
[2023-11-15] MEDS ORDERED: BENZONATATE 200 MG CAPSULE PO PRN (22:55)
[2023-11-15] MEDS ORDERED: BENZOCAINE/MENTHOL (CHLORASEPTIC ) LOZENGE MM PRN (22:55)
[2023-11-15] MEDS ORDERED: NICOTINE POLACRILEX 2 MG LOZENGE BC PRN (22:55)
[2023-11-15] MEDS ORDERED: POLYETHYLENE GLYCOL (HEALTHYLAX) 3350 17 GM PACKET PO PRN (22:55)
[2023-11-15] MEDS ORDERED: NALOXONE (NARCAN) HCL 4 MG/0.1 ML SPRAY NS PRN (22:55)
[2023-11-15] MEDS ORDERED: BISMUTH SUBSALICYLATE 524 MG/30 ML PO PRN (22:55)
[2023-11-15] MEDS: METHOCARBAMOL 500 MG TABLET PO PRN (23:38)
[2023-11-15] MEDS: hydrOXYzine PAMOATE 25 MG CAPSULE (FP) PO PRN (23:38)
[2023-11-16] MEDS: PRENATAL VITAMINS W/ FOLIC ACID TABLET (FP) PO SCH (10:03)
[2023-11-16] MEDS ORDERED: LORazepam 1 MG TABLET PO PRN (10:36)
[2023-11-16] MEDS: LORazepam 2 MG TABLET PO SCH (11:26)
[2023-11-16 12:00] LABS: HEMOGLOBIN 13.9 GM/dL (11.7-16.9); MCH 30.5 pg (25.7-33.7); MCHC 33.1 g/dl (32.0-35.9); MEAN CELL VOLUME 92.1 fl (80-96); PLATELET COUNT 347 10^3/uL (134-434); RBC 4.56 M/mm3 (4.00-5.60); RDW 14.8 % (11.9-15.9); WHITE BLOOD COUNT 5.2 K/mm3 (4.0-10.0)
[2023-11-16 14:04] LABS: CHLORIDE 106 mmol/L (98-107); POTASSIUM 4.8 mmol/L (3.5-5.1); SODIUM 139 mmol/L (136-145)
[2023-11-16 14:17] LABS: CALCIUM 9.4 mg/dL (8.5-10.1)
[2023-11-16 14:18] LABS: BLOOD UREA NITROGEN 15.7 mg/dL (7-18); GLUCOSE,RANDOM 94 mg/dL (74-106)
[2023-11-16 14:21] LABS: SGOT/AST 16 U/L (15-37); SGPT/ALT 23 U/L (13-61)
[2023-11-16 14:23] LABS: BILIRUBIN,TOTAL 0.4 mg/dL (0.2-1)
[2023-11-16 14:24] LABS: ALK PHOS 98 U/L (45-117); CO2 30 mmol/L (21-32); CREATININE 0.9 mg/dL (0.55-1.3)
[2023-11-16] MEDS: THIAMINE 100 MG TABLET PO SCH (22:43)
[2023-11-16] MEDS: MELATONIN 5 MG TABLETS PO SCH (22:43)
[2023-11-16] MEDS: SULFAMETHOXAZOLE/TRIMETHOPRIM 800MG/160MG D.S. TABLET PO SCH (22:44)
[2023-11-17] MEDS: IBUPROFEN 600 MG TABLET (FP) PO PRN (05:13)
[2023-11-17 18:10] VITALS: BP 165/102; PULSE 103; RESP 18; TEMP 98.1
[2023-11-17] MEDS: METOPROLOL TARTRATE 25 MG TABLET (FP) PO ONE (18:45)
[2023-11-18] MEDS ORDERED: LORazepam 1 MG TABLET PO SCH (05:00)
[2023-11-19] MEDS ORDERED: LORazepam 0.5 MG TABLET PO PRN
[2023-11-19] MEDS ORDERED: LORazepam 0.5 MG TABLET PO SCH (05:00)
[2023-11-20] MEDS ORDERED: LORazepam 0.5 MG TABLET PO ONE (05:00)
== END 2023-11-17 18:54 | disposition home or self-care (01) | DRG 774 ==
LOC: YASAS 20:16 → Y3N 22:32
PROVIDERS: ADMIT Allergy & Immunology; ATTEND Surgery
PROC: HZ2ZZZZ Detoxification Services for Substance Abuse Treatment (ICD-10-PCS; principal; 2023-11-15)
DX: F10.230 Alcohol dependence with withdrawal, uncomplicated (principal); F14.20 Cocaine dependence, uncomplicated; F13.10 Sedative, hypnotic or anxiolytic abuse, uncomplicated; F12.20 Cannabis dependence, uncomplicated; F17.210 Nicotine dependence, cigarettes, uncomplicated; F31.9 Bipolar disorder, unspecified; F25.9 Schizoaffective disorder, unspecified; I10 Essential (primary) hypertension; S02.92XD Unspecified fracture of facial bones, subsequent encounter for fracture with routine healing; Y08.02XD Assault by strike by baseball bat, subsequent encounter
CPT/HCPCS: 36415; 80053; 80305; 80307; 85027; 86780; 93005; 93010